=== PATIENT | female | born 1965 | race Two or more races ===

== ENCOUNTER 2022-09-18 08:13 | Outpatient (CLI) | payer OTHER | END 2022-09-18 08:19 | disposition home or self-care (01) | LOC: SONOGRAMA 08:13 | PROVIDERS: ATTEND Pediatrics | DX: K76.89 Other specified diseases of liver (principal) ==

== ENCOUNTER 2024-11-03 14:11 | Outpatient (CLI) | payer OTHER | END 2024-11-03 14:17 | disposition home or self-care (01) | LOC: MAMO-SONO 14:11 | PROVIDERS: ATTEND Obstetrics & Gynecology Maternal & Fetal Medicine | DX: N63.0 Unspecified lump in unspecified breast (principal); N64.4 Mastodynia; N60.11 Diffuse cystic mastopathy of right breast ==

== ENCOUNTER 2024-11-04 07:32 | Outpatient (CLI) | payer OTHER | END 2024-11-04 07:36 | disposition home or self-care (01) | LOC: SONOGRAMA 07:32 | PROVIDERS: ATTEND Internal Medicine Gastroenterology | DX: R10.9 Unspecified abdominal pain (principal) ==

== ENCOUNTER 2025-01-20 07:38 | Outpatient (CLI) | payer OTHER ==
[2025-01-21 09:07] LABS: HEPATITIS B CORE IGG Negative (Negative); HEPATITIS B SURFACE ANTIBODY Reactive (.); HEPATITIS C VIRUS ANTIBODY Non Reactive (Non Reactive)
== END 2025-01-20 07:39 | disposition home or self-care (01) ==
LOC: LAB 07:38
PROVIDERS: ATTEND Internal Medicine Gastroenterology
DX: R74.01 Elevation of levels of liver transaminase levels (principal)

== ENCOUNTER 2025-01-20 08:02 | Outpatient (CLI) | payer OTHER | END 2025-01-20 08:06 | disposition home or self-care (01) | LOC: SONOGRAMA 08:02 | PROVIDERS: ATTEND Internal Medicine Gastroenterology | DX: K76.0 Fatty (change of) liver, not elsewhere classified (principal) ==

== ENCOUNTER → 2025-02-15 11:11 | Outpatient (CLI) | payer OTHER | END | disposition home or self-care (01) | LOC: LAB 11:11 | PROVIDERS: ATTEND Internal Medicine Gastroenterology | DX: K90.0 Celiac disease (principal) ==